=== PATIENT | male | born 1975 | race Caucasian/White ===

== ENCOUNTER → 2016-08-16 | Outpatient (CLI) | payer OTHER ==
[2016-04-03 00:45] VITALS: BP 117/81
[~2016-08-16] MED LIST: AMOX1TAB61 PO; AZIT250T PO; CLON1TAB3 PO; HYDR-971 PO; IBUP800T PO; LEVO25TA4 PO; LISI10TA2 PO; LISI1TAB3 PO; METO25TA4 PO; METR500T4 PO; ONDA8TAB12 PO; OXYC-244 PO; PRED50TA PO; SULF1TAB24 PO; ZOLP10TA PO
--- NOTE | 2016-08-16 10:06 | RAD ---
EXAM: Renal sonogram. HISTORY: Frequent urination. TECHNIQUE: Sonographic imaging of the kidneys and bladder was performed. COMPARISON: None. FINDINGS: The right kidney measures 11.6 cm [id number] and the left kidney measures 11.1 cm [id number]. No solid or cystic renal lesion is seen. There is no hydronephrosis. The prevoid bladder volume is 158 cc. The post void bladder volume is 74 cc. There is hepatic steatosis. IMPRESSION: 1. Post void bladder volume of 74 cc. 2. Sonographically unremarkable kidneys.
== END | disposition home or self-care (01) ==
LOC: US 08:59
PROVIDERS: ATTEND Family Medicine
DX: R30.0 Dysuria (principal); M54.5 Low back pain; R35.0 Frequency of micturition
CPT/HCPCS: 76770

== ENCOUNTER 2016-08-24 18:03 | Emergency (ER) | payer OTHER ==
[~2016-08-24] VITALS: Ht 172.7 cm; Wt 119.6 kg
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
[2016-08-24] MEDS ORDERED: HYDR-79 PO ×2 (18:58→19:22)
[2016-08-24] MEDS ORDERED: HYDROCODON/IBUPROFEN 7.5/200MG TABLET. PO ONE (19:15)
[2016-08-24 19:40] VITALS: BP 122/61
--- NOTE | 2016-08-25 08:55 | RAD ---
Three-view study of the left hand Clinical indications: Hyperextension injury of the fifth digit today. Pain. Findings: No acute fracture or dislocation or osteolytic process is seen. IMPRESSION: No acute fracture.
== END 2016-08-24 19:50 | disposition home or self-care (01) ==
LOC: ER 18:03
DX: S60.052A Contusion of left little finger without damage to nail, initial encounter (principal); E03.9 Hypothyroidism, unspecified; I10 Essential (primary) hypertension; F17.220 Nicotine dependence, chewing tobacco, uncomplicated; Z91.041 Radiographic dye allergy status; W22.8XXA Striking against or struck by other objects, initial encounter; Y93.89 Activity, other specified; Y99.8 Other external cause status; Y92.89 Other specified places as the place of occurrence of the external cause
CPT/HCPCS: 73130; 99284

== ENCOUNTER 2016-12-23 19:33 | Emergency (ER) | payer OTHER ==
[~2016-12-23] VITALS: Ht 167.6 cm; Wt 108.9 kg
[~2016-12-23 19:33] MED LIST changes: +HYDR-79 PO; -IBUP800T PO; +IBUP800T19 PO; -METR500T4 PO; +METR500T8 PO; -OXYC-244 PO; +OXYC-327 PO
[2016-12-23 19:42] VITALS: BP 138/105
[2016-12-23] MEDS ORDERED: PROMETHAZINE IM 25 MG/ML VIAL IM ONE (20:00)
[2016-12-23] MEDS ORDERED: MORPHINE SULFATE 2 MG/ML DISP.SYRIN. IM ONE (20:00)
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
[2016-12-23] MEDS ORDERED: NAPR500T PO (21:00)
[2016-12-23] MEDS ORDERED: HYDR-971 PO (21:00)
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
== END 2016-12-23 21:14 | disposition home or self-care (01) ==
LOC: ER 19:33
DX: S13.4XXA Sprain of ligaments of cervical spine, initial encounter (principal); R07.81 Pleurodynia; M25.512 Pain in left shoulder; S89.92XA Unspecified injury of left lower leg, initial encounter; M54.9 Dorsalgia, unspecified; E03.9 Hypothyroidism, unspecified; E11.9 Type 2 diabetes mellitus without complications; I10 Essential (primary) hypertension; F17.220 Nicotine dependence, chewing tobacco, uncomplicated; Z91.041 Radiographic dye allergy status; V89.2XXA Person injured in unspecified motor-vehicle accident, traffic, initial encounter; Y93.89 Activity, other specified; Y99.8 Other external cause status; Y92.89 Other specified places as the place of occurrence of the external cause
CPT/HCPCS: 71020; 72125; 72128; 72131; 73030; 73562; 96372; 99284; J2270; J2550

== ENCOUNTER 2017-01-17 13:21 | Emergency (ER) | payer OTHER ==
[~2017-01-17] VITALS: Ht 170.2 cm; Wt 99.8 kg
[~2017-01-17 13:21] MED LIST changes: +NAPR500T PO
[2017-01-17 13:58] VITALS: BP 123/64
[2017-01-17] MEDS ORDERED: HYDROcodone/APAP 5/325MG 1 TAB TABLET PO ONE (14:10)
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
== END 2017-01-17 14:00 | disposition home or self-care (01) ==
LOC: ER 13:21
DX: G89.29 Other chronic pain (principal); M54.89 Other dorsalgia; E03.9 Hypothyroidism, unspecified; E11.9 Type 2 diabetes mellitus without complications; I10 Essential (primary) hypertension; F17.220 Nicotine dependence, chewing tobacco, uncomplicated; Z91.041 Radiographic dye allergy status
CPT/HCPCS: 99282

== ENCOUNTER → 2018-02-10 | Outpatient (CLI) | payer OTHER ==
[~2018-02-10] MED LIST changes: -CLON1TAB3 PO; +CLON1TAB4 PO; +NAPR-683 PO; -NAPR500T PO
--- NOTE | 2018-02-10 16:46 | RAD ---
Three-view right knee study Clinical indications: Right knee pain. FINDINGS: No acute fracture or dislocation or osteolytic process is evident. No joint effusion or significant arthritic change is seen. IMPRESSION: No significant osseous abnormality. Electronically signed by: Won Valenzuela MD (02/10/2018 4:43 PM) [id number]
== END | disposition home or self-care (01) ==
LOC: DXRAD 11:58
PROVIDERS: ATTEND Orthopaedic Surgery Sports Medicine
DX: M25.561 Pain in right knee (principal); I10 Essential (primary) hypertension; E11.9 Type 2 diabetes mellitus without complications; E78.5 Hyperlipidemia, unspecified; E03.9 Hypothyroidism, unspecified; G43.909 Migraine, unspecified, not intractable, without status migrainosus; K21.9 Gastro-esophageal reflux disease without esophagitis; Z90.49 Acquired absence of other specified parts of digestive tract; Z80.42 Family history of malignant neoplasm of prostate; Z83.3 Family history of diabetes mellitus
CPT/HCPCS: 73562

== ENCOUNTER 2018-04-03 06:04 | Emergency (ER) | payer OTHER ==
[~2018-04-03] VITALS: Ht 172.7 cm; Wt 117.9 kg
[~2018-04-03 06:04] MED LIST changes: +CLON1TAB11 PO; -CLON1TAB4 PO; +HYDR-3165 PO; -HYDR-971 PO; +METR-84 PO; -METR500T8 PO
[2018-04-03 06:05] VITALS: BP 138/74
[2018-04-03] MEDS ORDERED: TRAM-48 PO (06:28)
--- NOTE | 2018-04-03 06:28 | PHYS DOC ---
Past History Past Medical History: Diabetes, Hypertension, Hypothyroid Past Surgical History: Appendectomy Additional Past Surgical Histo: Hernia repairs (ventral) x 7 Smoking: Chew Alcohol Use: None Drug Use: None Adult General Chief Complaint Chief Complaint: sore throat HPI HPI Patient is a 43 year old male who presents with complaining of sore throat. Patient complaining of sore throat and fever and dry cough for 2 days without nasal congestion, shortness of breath, neck pain, myalgia. Patient complaining of nausea and almost vomiting yesterday. Review of Systems Review of Systems Constitutional: Reports fever Eyes: Denies change in visual acuity, redness, or eye pain [] HENT: Denies nasal congestion, reports sore throat Respiratory: Denies shortness of breath , reports cough[] Cardiovascular: No additional information not addressed in HPI [] GI: Denies abdominal pain, vomiting, bloody stools or diarrhea , reports nausea[ ] : Denies dysuria or hematuria [] Musculoskeletal: Denies back pain or joint pain [] Integument: Denies rash or skin lesions [] Neurologic: Denies headache, focal weakness or sensory changes [] Endocrine: Denies polyuria or polydipsia [] All other systems were reviewed and found to be within normal limits, except as documented in this note. Allergies Allergies Allergies Coded Allergies Type Severity Reaction Last Updated Verified I S O L A T I O N *CONTACT* Allergy Unknown 01/24/16 Yes NKMA Allergy Unknown 12/23/16 Yes Physical Exam Physical Exam Constitutional: Well developed, well nourished, mild distress, non-toxic appearance. [] HENT: Normocephalic, atraumatic, bilateral external ears normal, oropharynx moist, pharyngeal erythema with tonsillar erythema and enlargement, more in the right side, oral exudates, nose normal. [] Eyes: PERRLA, EOMI, conjunctiva normal, no discharge. [] Neck: Normal range of motion, no tenderness, supple, no stridor. [] Cardiovascular:Heart rate regular rhythm, no murmur [] Lungs & Thorax: Bilateral breath sounds clear to auscultation [] Skin: Warm, dry, no erythema, no rash. [] Back: No tenderness, no CVA tenderness. [] Extremities: No tenderness, no cyanosis, no clubbing, ROM intact, no edema. [] Neurologic: Alert and oriented X 3, normal motor function, normal sensory function, no focal deficits noted. [] Psychologic: Affect normal, judgement normal, mood normal. [] EKG EKG [] Radiology/Procedures Radiology/Procedures [] Course & Med Decision Making Course & Med Decision Making Pertinent Labs reviewed. (See chart for details) Evaluation of patient in ER showed 42-year-old male patient with complaining of sore throat and fever for 2 days. Patient had tonsillar exudates and enlargement with positive strep test and treated with 1 dose of Bicillin IM in ER. Dragon Disclaimer Dragon Disclaimer This electronic medical record was generated, in whole or in part, using a voice recognition dictation system. Departure Departure: Impression: Primary Impression: Acute streptococcal pharyngitis Disposition: HOME, SELF-CARE (at [id number]) Condition: STABLE Referrals: ZEFERINO WIGGINS MD (PCP) Patient Instructions: Strep Throat Additional Instructions: Drink plenty of liquids Follow-up with your primary care physician in 3-5 days Return to ER if not getting better Take alternate Tylenol and ibuprofen as needed for fever and pain Scripts Tramadol Hcl (ULTRAM) 50 Mg Tablet 50 MG PO PRN Q6HRS PRN for PAIN, #10 TAB Prov: PRATEEK BANG MD 04/03/18 PRATEEK BANG MD Apr 03, 2018 06:28
[2018-04-03] MEDS ORDERED: PENICILLIN G BENZATHINE LA 1,200,000 UNIT/2 ML DISP.SYRIN. IM ONE (06:30)
== END 2018-04-03 06:45 | disposition home or self-care (01) ==
LOC: ER 06:04
DX: J02.0 Streptococcal pharyngitis (principal); B95.0 Streptococcus, group A, as the cause of diseases classified elsewhere; E11.9 Type 2 diabetes mellitus without complications; I10 Essential (primary) hypertension; E03.9 Hypothyroidism, unspecified; F17.220 Nicotine dependence, chewing tobacco, uncomplicated; Z91.041 Radiographic dye allergy status
CPT/HCPCS: 87880; 96372; 99283; J0561

== ENCOUNTER → 2018-12-18 | Outpatient (CLI) | payer OTHER ==
[~2018-12-18] MED LIST changes: +HYDR-1179 PO; -HYDR-79 PO; +METR-34 PO; -METR-84 PO; -OXYC-327 PO; +OXYC1TAB19 PO; +TRAM-48 PO
[2018-12-18] MEDS: IOHEXOL 300 MG/ML 75 ML VIAL. IV ONE (15:10)
--- NOTE | 2018-12-18 15:33 | RAD ---
This CT of the abdomen and pelvis with contrast 12/18/2018 INDICATION: Abdominal pain COMPARISON STUDY: CT of the abdomen and pelvis with contrast April 03, 2016 TECHNIQUE: Multidetector CT imaging of the abdomen and pelvis was performed following the administration of IV contrast. FINDINGS: Visualized lung bases demonstrate no acute abnormality. Prior cholecystectomy noted. Liver is otherwise unremarkable. The adrenal glands are within normal limits. The pancreas is grossly unremarkable. Spleen is grossly unremarkable. Kidneys are grossly unremarkable. There is no evidence of bowel obstruction. No acute inflammatory changes involving the visualized bowel are identified. The large bowel is grossly unremarkable in appearance. The appendix is surgically absent. There is a surgical mesh seen in the right mid abdomen. Just above the umbilicus, to the left of midline, there is a [place] ventral hernia. Hernia defect measures approximately 6 cm transverse by 3.6 cm longitudinally. Hernia sac, though relatively small, contains a loop of nondilated small bowel. No other ventral hernias or abdominal hernias are identified. No free fluid or free air is seen in the abdomen or pelvis. Limited visualization of the bladder is grossly unremarkable. No acute osseous changes are identified. Minimal left stasis of L5 on S1 is seen with bilateral neural foraminal narrowing. IMPRESSION: 1. No evidence of acute intra-abdominal abnormality 2. Left-sided ventral hernia. Prior repair hernia repair, with right anterior abdominal wall surgical mesh surgical mesh noted. No evidence of obstruction or incarceration is identified by CT.. CT DOSING PQRS STATEMENT: One or more of the following individualized dose reduction techniques were utilized for this examination: 1. Automated exposure control 2. Adjustment of the mA and/or kV according to patient size 3. Use of iterative reconstruction technique Electronically signed by: Terry Hernandez MD (12/18/2018 3:30 PM) [id number]
== END | disposition home or self-care (01) ==
LOC: CT 14:47
PROVIDERS: ATTEND Surgery
DX: K43.9 Ventral hernia without obstruction or gangrene (principal); M48.061 Spinal stenosis, lumbar region without neurogenic claudication; Z90.49 Acquired absence of other specified parts of digestive tract
CPT/HCPCS: 74177; Q9967